=== PATIENT | male | born 2000 | race Caucasian/White ===

== ENCOUNTER 2023-09-16 23:11 | Emergency (ER) | payer BC ==
[~2023-09-16] VITALS: Ht 170.2 cm; Wt 72.6 kg
[2023-09-16 23:41] VITALS: BP 120/72; PULSE 64; RESP 16; TEMP 97.4; O2SAT 100
[2023-09-17] MEDS ORDERED: ACETAMINOPHEN EXTRA STRENGTH 500 MG TAB PO ONE (01:50)
[2023-09-17] MEDS ORDERED: IBUPROFEN 600 MG TAB PO ONE (01:50)
[2023-09-17] MEDS ORDERED: IBUP-2213 PO (02:27)
== END 2023-09-17 02:39 | disposition home or self-care (01) ==
LOC: MED 23:11
DX: S86.811A Strain of other muscle(s) and tendon(s) at lower leg level, right leg, initial encounter (principal); S50.01XA Contusion of right elbow, initial encounter; V49.88XA Car occupant (driver) (passenger) injured in other specified transport accidents, initial encounter; Y93.89 Activity, other specified; Y92.89 Other specified places as the place of occurrence of the external cause; Y99.8 Other external cause status
CPT/HCPCS: 99283